=== PATIENT | male | born 1960 | race Caucasian/White ===

== ENCOUNTER 2020-06-18 00:13 | Emergency (ER) | payer MEDICAID, OTHER ==
[~2020-06-18] VITALS: Ht 185.4 cm; Wt 86.2 kg
[2020-06-18 00:30] VITALS: BP 157/99
--- NOTE | 2020-06-18 00:30 | NUR ---
ED Nurse Note: Patient walked into ED for c/o abdominal pain that started yesterday after lunch and became increasingly worse after dinner last night. He states the pain is dull in nature and constant. No N/V/D noted. He is aaox4, breathing is normal and unlabored. NAD noted. Safety measures met; will cont. to monitor.
--- NOTE | 2020-06-18 00:41 | Emergency Room Report ---
History of Present Illness General Chief Complaint: Abdominal Pain Source: Patient Present Illness HPI This is a 60-year-old male with no past medical history. Presents with complaint abdominal pain and shortness of breath. The pain started after lunch but worse in the last 1 to 2 hours. Pain is mostly in the left side. The cough seems to be short of breath because of it. Pain is sharp. Nothing made it better. Nothing made it worse. Nauseous but no vomiting. No hematuria. Pain is 8 out of 10. No radiation. No urinary complaint. 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 Patient History Past Medical History: none, see triage record, old chart reviewed Past Surgical History: none Pertinent Family History: none Social History: Denies: smoking Immunizations: other Reviewed Nursing Documentation: PMH: Agreed; PSxH: Agreed Review of Systems Eye: Denies: eye pain, blurred vision ENT: Denies: ear pain, nose congestion, throat swelling Respiratory: Reports: shortness of breath; Denies: cough Cardiovascular: Denies: chest pain, palpitations Gastrointestinal: Reports: abdominal pain; Denies: diarrhea, nausea, vomiting Musculoskeletal: Denies: back pain, joint pain Skin: Denies: rash Neurological: Denies: headache, numbness Endocrine: Denies: increased thirst, increased urine Hematologic/Lymphatic: Denies: easy bruising All Other Systems: negative except mentioned in HPI Physical Exam Vital Signs Date Time Temp Pulse Resp B/P (MAP) Pulse Ox O2 Delivery O2 Flow Rate FiO2 06/18/20 00:30 96.8 104 22 157/99 (118) 94 Room Air Vitals with high blood pressure Sp02 EP Interpretation: reviewed, normal General Appearance: well appearing, no apparent distress, alert Head: normocephalic, atraumatic Eyes: bilateral eye PERRL, bilateral eye EOMI ENT: hearing grossly normal, normal pharynx Neck: full range of motion, supple, no meningismus Respiratory: chest non-tender, lungs clear, normal breath sounds Cardiovascular #1: regular rate, rhythm, no murmur Gastrointestinal: normal bowel sounds, no mass, no organomegaly, no bruit, non-distended, tenderness - Left upper quadrant and flank Musculoskeletal: back normal, normal range of motion, gait/station normal Psychiatric: mood/affect normal Medical Decision Making Diagnostic Impression: Primary Impression: Abdominal pain Qualified Codes: R10.12 - Left upper quadrant pain ER Course this patient presents with abdominal pain. No evidence of obstruction or acute abdomen. Pain remains resolved now. Will discharge home. CT/MRI/US Diagnostic Results CT/MRI/US Diagnostic Results : Imaging Test Ordered: CT abdomen and pelvis Impression Read by radiologist. Negative Last Vital Signs Date Time Temp Pulse Resp B/P (MAP) Pulse Ox O2 Delivery O2 Flow Rate FiO2 06/18/20 00:30 96.8 104 22 157/99 (118) 94 Room Air Status: improved Disposition: HOME, SELF-CARE Condition: Stable Scripts Ibuprofen* (MOTRIN*) 600 Mg Tablet 600 MG ORAL Q6H PRN for For Pain, #30 TAB 0 Refills Prov: Ras Lopez MD 06/18/20 Patient Instructions: Abdominal Pain, Adult Additional Instructions: Follow-up with your doctor in 2 to 3 days if not better. Return if symptoms worsen. Ras Lopez MD Jun 18, 2020 00:41
[2020-06-18] MEDS ORDERED: Ketorolac 30mg Inj IV ONE (00:45)
--- NOTE | 2020-06-18 00:55 | NUR ---
ED Nurse Note: Pt to CT
[2020-06-18 01:12] LABS: APPEARANCE,URINE CLEAR; BASOPHILS % (AUTO) 1.5 % (0.0-2.0); BILIRUBIN, URINE NEGATIVE (NEGATIVE); COLOR,URINE PALE YELLOW; EOSINOPHILS % (AUTO) 1.4 % (0.0-3.0); GLUCOSE, URINE (UA) NEGATIVE (NEGATIVE); HEMATOCRIT 53.7 % (42.0-52.0); KETONES,URINE NEGATIVE (NEGATIVE); LEUKOCYTE ESTERASE ,URINE NEGATIVE (NEGATIVE); LYMPHOCYTES % (AUTO) 35.9 % (20.0-45.0); MEAN CORPUSCULAR VOLUME 92 FL (80-99); MONOCYTES % (AUTO) 7.5 % (1.0-10.0); NEUTROPHILS % (AUTO) 53.8 % (45.0-75.0); NITRITE,URINE NEGATIVE (NEGATIVE); PH,URINE 6 (4.5-8.0); PLATELET COUNT 280 K/UL (150-450); PROTEIN,URINE NEGATIVE (NEGATIVE); RED BLOOD COUNT 5.84 M/UL (4.70-6.10); RED CELL DISTRIBUTION WIDTH 12.3 % (11.6-14.8); UROBILINOGEN,URINE NORMAL MG/DL (0.0-1.0); WHITE BLOOD COUNT 9.5 K/UL (4.8-10.8)
[2020-06-18 01:13] LABS: HEMOGLOBIN 18.3 G/DL (14.2-18.0)
[2020-06-18 01:25] LABS: CALCIUM 9.4 MG/DL (8.5-10.1); CREATININE 1.3 MG/DL (0.55-1.30); POTASSIUM 3.5 MMOL/L (3.5-5.1)
[2020-06-18 01:29] LABS: ALBUMIN 4.4 G/DL (3.4-5.0); BILIRUBIN,TOTAL 0.6 MG/DL (0.2-1.0)
--- NOTE | 2020-06-18 01:30 | NUR ---
ED Nurse Note: Pt states he is feeling better at this time.
--- NOTE | 2020-06-18 01:59 | Diagnostic Imaging Report ---
CT abdomen pelvis without contrast History: Abdominal pain Technique: Axial noncontrast CT of the abdomen and pelvis with coronal and sagittal reformatted images. Technique more: CTDI is 7.6 mGy and DLP is 466.6 mGy-cm. Technique more: One or more of the following dose reduction techniques were used: automated exposure control, adjustment of the mA and/or kV according to patient size, use of iterative reconstruction technique. Comparison: None Findings: Lung bases: No focal finding Distal heart and esophagus: Small hiatal hernia. Liver: No intrahepatic lesion or ductal dilation. Gallbladder: Normal Spleen: Normal Pancreas: Normal Adrenals: Normal Kidneys: Negative for hydronephrosis or stones. Aorta: Normal caliber Lymph nodes: Negative Bowel: Normal appendix. Scattered colonic stool. Caliber of the small bowel loops is normal. Partially distended stomach. Scattered stool down to the level of the left colon. Pelvis: No pelvic free fluid or mass. Bones: No lytic or blastic bony lesions. Impression: 1. No acute intra-abdominal or pelvic finding.
[2020-06-18] MEDS ORDERED: IBUPROFEN600 M1 ORAL (02:22)
[2020-06-18 02:25] VITALS: BP 138/85
--- NOTE | 2020-06-18 02:25 | NUR ---
ER DISCHARGE NOTE: Patient is cleared to be discharged per ERMD, pt is aox4, on room air, with stable vital signs. pt was given dc and prescription instructions, pt was able to verbalize understanding, pt id band and iv site removed without complications. pt is able to ambulate with steady gait. pt took all belongings.
== END 2020-06-18 02:25 | disposition home or self-care (01) ==
LOC: EMR 00:26
DX: R10.12 Left upper quadrant pain (principal); R06.02 Shortness of breath; Z88.0 Allergy status to penicillin
CPT/HCPCS: 36415; 74176; 80053; 81003; 83690; 85025; 96361; 96374; 96375; J1885; J2405; J7030; Z7502; 99284

== ENCOUNTER 2020-09-18 02:33 | Emergency (ER) | payer OTHER ==
[~2020-09-18] VITALS: Ht 185.4 cm; Wt 86.2 kg
[~2020-09-18 02:33] MED LIST: IBUPROFEN600 M1 ORAL
--- NOTE | 2020-09-18 02:55 | NUR ---
ED Nurse Note: Pt ambulated into ED. C/O LUQ abdominal pain and urinary frequency. Pt reports he took 500mg cipro today that was prescribed by telehealth doctor for c/o urinary frequency. Reports urinary frequency resolved at this time.
[2020-09-18 02:58] VITALS: BP 172/98
[2020-09-18 03:03] LABS: APPEARANCE,URINE CLEAR; BILIRUBIN, URINE NEGATIVE (NEGATIVE); COLOR,URINE PALE YELLOW; EOSINOPHILS % (AUTO) 1.5 % (0.0-3.0); GLUCOSE, URINE (UA) NEGATIVE (NEGATIVE); HEMATOCRIT 54.3 % (42.0-52.0); HEMOGLOBIN 17.5 G/DL (14.2-18.0); KETONES,URINE NEGATIVE (NEGATIVE); LEUKOCYTE ESTERASE ,URINE NEGATIVE (NEGATIVE); LYMPHOCYTES % (AUTO) 38.4 % (20.0-45.0); MEAN CORPUSCULAR VOLUME 91 FL (80-99); NEUTROPHILS % (AUTO) 48.1 % (45.0-75.0); NITRITE,URINE NEGATIVE (NEGATIVE); PH,URINE 5 (4.5-8.0); PLATELET COUNT 282 K/UL (150-450); PROTEIN,URINE NEGATIVE (NEGATIVE); RED BLOOD COUNT 5.95 M/UL (4.70-6.10); RED CELL DISTRIBUTION WIDTH 12.4 % (11.6-14.8); UROBILINOGEN,URINE NORMAL MG/DL (0.0-1.0); WHITE BLOOD COUNT 10.9 K/UL (4.8-10.8)
[2020-09-18 03:18] LABS: ALANINE AMINOTRANSFERASE 31 U/L (12-78); ALBUMIN 4.1 G/DL (3.4-5.0); ALKALINE PHOSPHATASE 89 U/L (46-116); ANION GAP 10 mmol/L (5-15); ASPARTATE AMINO TRANSFERASE 25 U/L (15-37); BILIRUBIN,TOTAL 0.4 MG/DL (0.2-1.0); BLOOD UREA NITROGEN 17 mg/dL (7-18); CALCIUM 9.3 MG/DL (8.5-10.1); CARBON DIOXIDE 27 MMOL/L (21-32); CHLORIDE 104 MMOL/L (98-107); CREATININE 1.2 MG/DL (0.55-1.30); POTASSIUM 3.5 MMOL/L (3.5-5.1); SODIUM 141 MMOL/L (136-145)
[2020-09-18] MEDS ORDERED: FAMOTIDINE20 MG ORAL (03:37)
[2020-09-18] MEDS ORDERED: DICYCLOMINE HCL10 MG ORAL (03:37)
[2020-09-18] MEDS ORDERED: DOXYCYCLINE MO100 MG ORAL (03:37)
[2020-09-18] MEDS ORDERED: ACETAMINOPHEN500 M3 ORAL (03:37)
--- NOTE | 2020-09-18 03:38 | Emergency Room Report ---
History of Present Illness General Chief Complaint: Abdominal Pain Source: Patient Present Illness HPI 60-year-old male here with urinary frequency and epigastric abdominal pain. Patient said that he had unprotected sex with a woman several weeks ago and that over the last week he has been having urinary frequency and lower abdominal pain. He had a telemedicine appointment yesterday and was diagnosed with p rostatitis. Patient was given a prescription for ciprofloxacin. He took 1 dose of ciprofloxacin and several hours later began to have epigastric and left upper quadrant abdominal pain. Does not know if he has ever taken ciprofloxacin before. 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 Pain is sharp in nature, located in the epigastric and left upper quadrant region, otherwise does not radiate. No other complaining of lower abdominal pain. No fevers, chills, chest pain, palpitation, shortness of breath, back pain, nausea, vomiting, diarrhea, dysuria. 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 Nursing Documentation-[facility] Past Medical History: No Stated History Review of Systems All Other Systems: negative except mentioned in HPI Physical Exam Vital Signs Date Time Temp Pulse Resp B/P (MAP) Pulse Ox O2 Delivery O2 Flow Rate FiO2 09/18/20 02:37 98.2 88 18 172/98 (122) 95 Room Air 09/18/20 02:58 99 Sp02 EP Interpretation: reviewed, normal General Appearance: no apparent distress, alert, non-toxic Head: normocephalic, atraumatic Eyes: bilateral eye normal inspection, bilateral eye PERRL ENT: hearing grossly normal, normal pharynx, no angioedema, normal voice Neck: full range of motion, supple/symm/no masses Respiratory: chest non-tender, lungs clear, normal breath sounds, speaking full sentences Cardiovascular #1: regular rate, rhythm, no edema Cardiovascular #2: 2+ carotid (R), 2+ carotid (L), 2+ radial (R), 2+ radial (L), 2+ dorsalis pedis (R), 2+ dorsalis pedis (L) Gastrointestinal: normal bowel sounds, non tender, soft, non-distended, no guarding, no rebound Rectal: deferred Genitourinary: normal inspection, no CVA tenderness Musculoskeletal: back normal, normal range of motion, gait/station normal, non- tender Neurologic: alert, motor strength/tone normal, oriented x3, sensory intact, responsive, speech normal Psychiatric: judgement/insight normal, memory normal, mood/affect normal, no suicidal/homicidal ideation Lymphatic: no adenopathy Medical Decision Making Diagnostic Impression: Primary Impression: Abdominal pain Additional Impression: Prostatitis ER Course Laboratory Tests Test 09/18/20 02:55 White Blood Count 10.9 K/UL (4.8-10.8) H Red Blood Count 5.95 M/UL (4.70-6.10) Hemoglobin 17.5 G/DL (14.2-18.0) Hematocrit 54.3 % (42.0-52.0) H Mean Corpuscular Volume 91 FL (80-99) Mean Corpuscular Hemoglobin 29.5 PG (27.0-31.0) Mean Corpuscular Hemoglobin Concent 32.3 G/DL (32.0-36.0) Red Cell Distribution Width 12.4 % (11.6-14.8) Platelet Count 282 K/UL (150-450) Mean Platelet Volume 8.6 FL (6.5-10.1) Neutrophils (%) (Auto) 48.1 % (45.0-75.0) Lymphocytes (%) (Auto) 38.4 % (20.0-45.0) Monocytes (%) (Auto) 10.0 % (1.0-10.0) Eosinophils (%) (Auto) 1.5 % (0.0-3.0) Basophils (%) (Auto) 2.0 % (0.0-2.0) Urine Color Pale yellow Urine Appearance Clear Urine pH 5 (4.5-8.0) Urine Specific Chicken 1.020 (1.005-1.035) Urine Protein Negative (NEGATIVE) Urine Glucose (UA) Negative (NEGATIVE) Urine Ketones Negative (NEGATIVE) Urine Blood Negative (NEGATIVE) Urine Nitrite Negative (NEGATIVE) Urine Bilirubin Negative (NEGATIVE) Urine Urobilinogen Normal MG/DL (0.0-1.0) Urine Leukocyte Esterase Negative (NEGATIVE) Sodium Level 141 MMOL/L (136-145) Potassium Level 3.5 MMOL/L (3.5-5.1) Chloride Level 104 MMOL/L (98-107) Carbon Dioxide Level 27 MMOL/L (21-32) Anion Gap 10 mmol/L (5-15) Blood Urea Nitrogen 17 mg/dL (7-18) Creatinine 1.2 MG/DL (0.55-1.30) Estimated Glomerular Filtration Rate > 60 mL/min (>60) Glucose Level 109 MG/DL (74-106) H Calcium Level 9.3 MG/DL (8.5-10.1) Total Bilirubin 0.4 MG/DL (0.2-1.0) Aspartate Amino Transferase (AST) 25 U/L (15-37) Alanine Aminotransferase (ALT) 31 U/L (12-78) Alkaline Phosphatase 89 U/L (46-116) Total Protein 8.4 G/DL (6.4-8.2) H Albumin 4.1 G/DL (3.4-5.0) Globulin 4.3 g/dL Albumin/Globulin Ratio 1.0 (1.0-2.7) Lipase 173 U/L (73-393) 60-year-old male with abdominal pain and urinary frequency. Patient was hemodynamically stable in the emergency department. He was nontoxic-appearing. Urinalysis unremarkable. CBC and CMP were normal. Lipase normal. Patient was complaining of some mild epigastric ramon pain which resolved after a GI cocktail. He had taken 1 dose of ciprofloxacin and then began to have the epigastric abdominal tenderness. Patient said that the symptoms began about a week after he had unprotected sexual intercourse. Was given ceftriaxone and a prescription for doxycycline. Told to stop taking the ciprofloxacin. Told to return to the emergency room with worsening symptoms. He expressed understanding and was discharged. Last Vital Signs Date Time Temp Pulse Resp B/P (MAP) Pulse Ox O2 Delivery O2 Flow Rate FiO2 09/18/20 02:58 88 18 Room Air 99 09/18/20 02:58 98.2 172/98 95 Disposition: HOME, SELF-CARE Condition: Stable Scripts Dicyclomine Hcl* (DICYCLOMINE HCL*) 10 Mg Capsule 10 MG ORAL TID, #10 CAP Prov: Terrance Turner M.D. 09/18/20 Acetaminophen* (ACETAMINOPHEN EXTRA STRENGTH*) 500 Mg Tablet 500 MG ORAL Q6H, #20 TAB Prov: Terrance Turner M.D. 09/18/20 Famotidine* (Pepcid 20mg tablet*) 20 Mg Tablet 20 MG ORAL DAILY for Gerd, #30 TAB 0 Refills Prov: Terrance Turner M.D. 09/18/20 Doxycycline Monohydrate* (DOXYCYCLINE MONOHYDRATE*) 100 Mg Capsule 100 MG ORAL Q12H, #14 CAP 0 Refills Prov: Terrance Turner M.D. 09/18/20 [facility]: [facility]. [facility] Patient Instructions: Abdominal Pain, Adult Additional Instructions: Please follow-up with your primary care doctor in the next 1 to 3 days to discuss this emergency department visit and for reevaluation. If you have any new or worsening symptoms please return to the emergency department for reevaluation. Stop taking ciprofloxacin and take the new antibiotic doxycycline Terrance Turner M.D. Sep 18, 2020 03:38
[2020-09-18] MEDS ORDERED: Dicyclomine HCl 10mg/5ml oral soln ORAL ONE (03:45)
[2020-09-18] MEDS ORDERED: Mylanta II UD 30ml ORAL ONE (03:45)
[2020-09-18] MEDS ORDERED: Lidocaine 2% Visc 15ml soln ORAL ONE (03:45)
[2020-09-18] MEDS ORDERED: cefTRIAXone 1 GM in NS 55 ML IVPB ONE (03:45)
[2020-09-18 04:03] VITALS: BP 148/89
--- NOTE | 2020-09-18 04:05 | NUR ---
ER DISCHARGE NOTE: Patient is cleared to be discharged per ER MD, pt is aao x4, on room air, with stable vital signs. pt was given d/c and prescription instructions, pt was able to verbalize understanding, pt id band and iv site removed without complications. pt is able to ambulate with steady gait. pt took all belongings.
== END 2020-09-18 04:25 | disposition home or self-care (01) ==
LOC: EMR 02:46
DX: N41.9 Inflammatory disease of prostate, unspecified (principal); R10.13 Epigastric pain; Z88.0 Allergy status to penicillin
CPT/HCPCS: 36415; 80053; 81003; 83690; 85025; 96365; J0696; Z7502; 99284

== ENCOUNTER 2020-09-21 21:44 | Emergency (ER) | payer OTHER ==
[~2020-09-21] VITALS: Ht 185.4 cm; Wt 83.9 kg
[~2020-09-21 21:44] MED LIST changes: +ACETAMINOPHEN500 M3 ORAL; +DICYCLOMINE HCL10 MG ORAL; +DOXYCYCLINE MO100 MG ORAL; +FAMOTIDINE20 MG ORAL
--- NOTE | 2020-09-21 22:35 | NUR ---
ED Nurse Note: Pt ambulated into ED today, c/o possible side effects of antibiotics. Pt reports he is having testicular pain, bilateral hip pain, and reports muscle twitching of chest. Pt is anxious and tearful. Provider has seen pt, ekg completed.
--- NOTE | 2020-09-21 22:44 | Emergency Room Report ---
History of Present Illness General Chief Complaint: Chest Pain Source: Patient, Medical Record Present Illness HPI This is a 60-year-old male with a history of anxiety. He presents with chief complaint of possible antibiotic reaction. He is also feeling anxious and has muscle twitching. He ended a relationship that lasted for 6 years. He had unprotected sex with a female partner couple weeks ago. He has some burning sensation in his urine and took Cipro. He then developed ramon pain. He was seen here a couple days ago. Labs were normal. Urinalysis was negative. CT scan was negative. He was diagnosed with possible prostatitis and given antibiotics of Rocephin and doxycycline. He still having some urinary complaint. He also has some muscle twitching in his chest for last couple days. He was anxious so he came in. 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 Patient History Past Medical History: see triage record, old chart reviewed Past Surgical History: none Pertinent Family History: none Social History: Denies: smoking Immunizations: other Reviewed Nursing Documentation: PMH: Agreed; PSxH: Agreed Nursing Documentation-PMH History Of Psychiatric Problem: Yes - anxiety Review of Systems Eye: Denies: eye pain, blurred vision ENT: Denies: ear pain, nose congestion, throat swelling Respiratory: Denies: cough, shortness of breath Cardiovascular: Denies: chest pain, palpitations Gastrointestinal: Denies: abdominal pain, diarrhea, nausea, vomiting Musculoskeletal: Denies: back pain, joint pain Skin: Denies: rash Neurological: Denies: headache, numbness Endocrine: Denies: increased thirst, increased urine Hematologic/Lymphatic: Denies: easy bruising All Other Systems: negative except mentioned in HPI Physical Exam Vital Signs Date Time Temp Pulse Resp B/P (MAP) Pulse Ox O2 Delivery O2 Flow Rate FiO2 09/21/20 22:15 98.4 136 20 164/95 (118) 96 Room Air Vitals with tachycardia and high blood pressure Sp02 EP Interpretation: reviewed, normal General Appearance: well appearing, no apparent distress, alert Head: normocephalic, atraumatic Eyes: bilateral eye PERRL, bilateral eye EOMI ENT: hearing grossly normal, normal pharynx Neck: full range of motion, supple, no meningismus Respiratory: chest non-tender, lungs clear, normal breath sounds Cardiovascular #1: regular rate, rhythm, no murmur Gastrointestinal: normal bowel sounds, non tender, no mass, no organomegaly, no bruit, non-distended Musculoskeletal: back normal, normal range of motion, gait/station normal Psychiatric: anxious Medical Decision Making Diagnostic Impression: Primary Impression: Anxiety ER Course This patient presents with possible adverse reaction from medication. His symptom is more consistent with anxiety related. After Ativan his heart rate now in the 90s. He is feeling much better. No evidence of ACS, PE, dissection telemetry. I see no evidence of any infection in his urine. No need for antibiotics. EKG Diagnostic Results Troponin ordered: Yes Rate: tachycardiac Rhythm: NSR ST Segments: no acute changes Rhythm Strip Diag. Results EP Interpretation: yes Rate: 90 Rhythm: NSR, no PVC's, no ectopy Last Vital Signs Date Time Temp Pulse Resp B/P (MAP) Pulse Ox O2 Delivery O2 Flow Rate FiO2 09/21/20 22:15 98.4 136 20 164/95 (118) 96 Room Air Status: improved Disposition: HOME, SELF-CARE Condition: Improved Referrals: NON PHYSICIAN (PCP) Additional Instructions: Follow-up with your doctor in 7 days. Return if symptoms worsen. Ras Lopez MD Sep 21, 2020 22:44
[2020-09-21] MEDS ORDERED: LORazepam Inj 2mg/ml 1ml IV ONE (22:45)
[2020-09-21 23:04] LABS: BASOPHILS % (AUTO) 2.3 % (0.0-2.0); EOSINOPHILS % (AUTO) 1.3 % (0.0-3.0); HEMATOCRIT 51.6 % (42.0-52.0); HEMOGLOBIN 17.3 G/DL (14.2-18.0); LYMPHOCYTES % (AUTO) 38.3 % (20.0-45.0); MEAN CORPUSCULAR VOLUME 92 FL (80-99); MONOCYTES % (AUTO) 8.6 % (1.0-10.0); NEUTROPHILS % (AUTO) 49.5 % (45.0-75.0); PLATELET COUNT 285 K/UL (150-450); RED BLOOD COUNT 5.62 M/UL (4.70-6.10); RED CELL DISTRIBUTION WIDTH 12.8 % (11.6-14.8); WHITE BLOOD COUNT 9.6 K/UL (4.8-10.8)
[2020-09-21 23:38] LABS: ANION GAP 11 mmol/L (5-15); BLOOD UREA NITROGEN 23 mg/dL (7-18); CALCIUM 9.5 MG/DL (8.5-10.1); CARBON DIOXIDE 26 MMOL/L (21-32); CHLORIDE 104 MMOL/L (98-107); CREATININE 1.2 MG/DL (0.55-1.30); POTASSIUM 3.7 MMOL/L (3.5-5.1); SODIUM 141 MMOL/L (136-145)
[2020-09-21 23:58] VITALS: BP 158/92
--- NOTE | 2020-09-22 00:06 | NUR ---
ER DISCHARGE NOTE: Patient is cleared to be discharged per ER MD, pt is aao x4, on room air, with stable vital signs. pt was given d/c and instructions, pt was able to verbalize understanding, pt id band and iv site removed without complications. pt is able to ambulate with steady gait. pt took all belongings.
== END 2020-09-22 | disposition home or self-care (01) ==
LOC: EMR 22:12
DX: F41.9 Anxiety disorder, unspecified (principal); Z88.0 Allergy status to penicillin
CPT/HCPCS: 36415; 80048; 84439; 84443; 84484; 85025; 85379; 93005; 96374; Z7502; 99284